=== PATIENT | male | born 1970 | race Caucasian/White ===

== ENCOUNTER 2023-04-23 16:10 | Emergency (ER) | payer OTHER, MEDICAID, SELFPAY ==
[2023-04-23] VITALS (80 sets, daily range): BP systolic 104–185; BP diastolic 55–101; PULSE 86–125; RESP 1–42; TEMP 36.8; O2SAT 87–98
--- NOTE | 2023-04-23 16:29 | DI.RAD.S_ITS ---
PROCEDURE: XR CHEST 1V INDICATIONS: chest pain TECHNIQUE: One view of the chest was acquired. COMPARISON: None. FINDINGS: Surgical changes and devices: None. Lungs and pleura: On this semiupright study, no large pneumothorax can be seen. There is mild blunting of the left costophrenic angle. Mild generalized interstitial prominence can be seen. Low lung volumes are noted. This causes a crowded appearance to the lung markings and limits evaluation. Mediastinum: Mediastinal contours appear normal. Heart size is at the upper limits of normal. Bones and chest wall: No suspicious bony lesions. Overlying soft tissues appear unremarkable. IMPRESSION: Small left-sided pleural effusion. Mild generalized interstitial prominence. Please consider artifact versus mild pulmonary edema. Dictated by: Enrique Mace M.D. on 04/23/2023 at 16:37 Approved by: Enrique Mace M.D. on 04/23/2023 at 16:37
--- NOTE | 2023-04-23 16:49 | ED_ITS ---
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 Negative (Negative) Urine Bilirubin Negative (NEGATIVE) Urine Urobilinogen 0.2 (0.2) E.U./dL Ur Leukocyte Esterase Negative (NEGATIVE) Urine RBC 0-1/hpf (0-5/HPF) Urine WBC None seen (0-5/HPF) Ur Squamous Epith Cells 0-1 /hpf (0-5/HPF) Urine Bacteria None seen (None) Urine Mucus 1+ H (Negative) Salicylates < 1.0 (<20) mg/dL U Opiates 300ng/mL cut (Negative) Ur Oxycodone Screen (Negative) Urine Methadone Screen (Negative) Acetaminophen < 10 (10-30) ug/mL Ur Barbiturates Screen (Negative) U Tricyclic Antidepress (Negative) Ur Phencyclidine Scrn (Negative) Ur Amphetamines Screen (Negative) U Methamphetamines Scrn (Negative) Ur MDMA Scrn (Ecstasy) (Negative) U Benzodiazepines Scrn (Negative) Urine Cocaine Screen (Negative) U Marijuana (THC) Screen (Negative) Ethyl Alcohol 274 H ( - 10) mg/dL SARS-CoV-2 (PCR) (Negative) 04/23/23 04/23/23 Range/Units 16:52 22:03 WBC (4.5-11.0) X10^3/uL RBC (4.5-5.9) X10^6/uL Hgb (13.5-17.5) g/dL Hct (41-53) % MCV (80-100) fL MCH (26-34) PG MCHC (30-36) % RDW (11.6-14.8) % Plt Count (150-400) X10^3/uL Neut % (Auto) (50-75) % Lymph % (Auto) (25-40) % [place] % (Auto) (3-14) % Eos % (Auto) (2-4) % Baso % (Auto) (0-2) % Neut # (Auto) (6890-8115) /uL Lymph # (Auto) (0258-4720) /uL [place] # (Auto) (0-900) /uL Eos # (Auto) (0-450) /uL Baso # (Auto) (0-100) /uL PT (10.1-12.7) SECONDS INR (0.9-1.3) APTT (26-36) SECONDS Sodium (137-145) mmol/L Potassium (3.4-5.1) mmol/L Chloride (98-107) mmol/L Carbon Dioxide (22-32) mmol/L BUN (9-20) mg/dL Creatinine (0.66-1.25) mg/dL Estimated GFR (>60) mL/min BUN/Creatinine Ratio (6-22) Glucose (70-100) mg/dL Calcium (8.4-10.2) mg/dL Magnesium (1.6-2.3) mg/dL Total Bilirubin (0.2-1.3) mg/dL AST (17-59) IU/L ALT (<50) IU/L Alkaline Phosphatase (38-126) U/L Total Creatine Kinase (55-170) U/L Troponin I (0.01-0.034) ng/mL NT-Pro-B Natriuret Pep (<125) pg/mL Total Protein (6.3-8.2) g/dL Albumin (3.5-5.0) g/dL Globulin (1.7-4.1) g/dL Albumin/Globulin Ratio (1.0-2.8) Lipase (23-300) U/L TSH (0.47-4.68) uIU/mL Free T4 (0.78-2.19) ng/dL Urine Color Urine Appearance Urine pH (4.5-8.0) Ur Specific [place] (1.000-1.035) Urine Protein (Negative) Urine Glucose (UA) (Negative) g/dL Urine Ketones (NEGATIVE) Urine Occult Blood (Negative) Urine Nitrate (Negative) Urine Bilirubin (NEGATIVE) Urine Urobilinogen (0.2) E.U./dL Ur Leukocyte Esterase (NEGATIVE) Urine RBC (0-5/HPF) Urine WBC (0-5/HPF) Ur Squamous Epith Cells (0-5/HPF) Urine Bacteria (None) Urine Mucus (Negative) Salicylates (<20) mg/dL U Opiates 300ng/mL cut Negative (Negative) Ur Oxycodone Screen Negative (Negative) Urine Methadone Screen Negative (Negative) Acetaminophen (10-30) ug/mL Ur Barbiturates Screen Negative (Negative) U Tricyclic Antidepress Negative (Negative) Ur Phencyclidine Scrn Negative (Negative) Ur Amphetamines Screen Negative (Negative) U Methamphetamines Scrn Negative (Negative) Ur MDMA Scrn (Ecstasy) Negative (Negative) U Benzodiazepines Scrn Positive H (Negative) Urine Cocaine Screen Negative (Negative) U Marijuana (THC) Screen Negative (Negative) Ethyl Alcohol ( - 10) mg/dL SARS-CoV-2 (PCR) Negative (Negative) [facility] Narrative Medical decision making narrative: This is a 53-year-old male who presents with complaint of suicidal ideation, patient has recently had alcohol and cocaine in the last 24 hours he feels that he is withdrawing at this time. He is tachycardic, slightly hypertensive, afebrile 94% on room air. Patient was given fluids, phenobarbital and we will reassess. Patient had labs including chest x-ray, troponin, BNP, tox screen workup shows appropriate CBC, lymphocytes are slightly low, coags are negative, electrolytes are normal glucose 169 normal renal function total CK is 353 AST ALT are 90 and 73, total bilirubin is normal with normal lipase TSH and T4 are normal and nega tive BNP as well as negative troponin. UA shows some changes consistent with possible dehydration with ketones, no glucose, no signs of infection. UDS positive for benzos. Negative for salicylates, negative for Tylenol, ETOH is 274. Patient was given phenobarbital 260mg IV, patient is feeling improved. A little sleepy afterwards. Patient medically cleared. Dr pichardo: received turned over. Review the patient's history and physical exam. Patient has been stable overnight. He has been sleeping most of the night. Has received a couple doses of Ativan however his CIWA scores have all been less than 5. [facility] and also suicidal ideation. He is stable for transport. Transport has been arranged. Discharge Plan Departure Patient Disposition: [facility]fer [facility] Clinical Impression: Alcoholic intoxication, Cocaine use disorder, Suicidal ideation
[2023-04-23] MEDS: PHENobarbital 65 MG/ML VIAL 260 MG IV (16:55)
[2023-04-23] MEDS: SODIUM CHLORIDE 0.9% 1,000 ML 1000 ML IV (16:56)
[2023-04-23 17:20] LABS: UR Morphine/Opiate cutoff 300 Negative (Negative); Ur Creatinine Normal (Normal); Ur Specific Gravity Normal (Normal); Urine Amphetamines Negative (Negative); Urine Barbiturates Negative (Negative); Urine Benzodiazepines Positive (Negative); Urine Cocaine Negative (Negative); Urine MDMA Negative (Negative); Urine Methadone Negative (Negative); Urine Methamphetamines Negative (Negative); Urine Oxycodone Negative (Negative); Urine Phencyclidine Negative (Negative); Urine Tetrahydrocannabinol Negative (Negative); Urine Tricyclic Antidepressant Negative (Negative); Urine pH Normal (Normal)
[2023-04-23 17:24] LABS: Add Manual Diff / Slide Review NO; Basophils Absolute Auto 0 /uL (0-100); Basophils Percent Auto 0.6 % (0-2); Eosinophils Absolute Auto 0 /uL (0-450); Hematocrit 46.8 % (41-53); Hemoglobin 16.2 g/dL (13.5-17.5); Lymphocytes Absolute Auto 1100 /uL (1100-4500); Lymphocytes Percent Auto 20.4 % (25-40); Mean Corpuscular HGB Conc 34.6 % (30-36); Mean Corpuscular Hemoglobin 30.4 PG (26-34); Mean Corpuscular Volume 87.8 fL (80-100); Monocytes Absolute Auto 400 /uL (0-900); Neutrophils Absolute Auto 3700 /uL (1500-7000); Platelet Count 256 X10^3/uL (150-400); Red Blood Cell Count 5.33 X10^6/uL (4.5-5.9); Red Cell Distribution Width 14.6 % (11.6-14.8); White Blood Cell Count 5.2 X10^3/uL (4.5-11.0)
[2023-04-23 17:26] LABS: INR 0.9 (0.9-1.3); Prothrombin Time 10.4 SECONDS (10.1-12.7)
[2023-04-23 17:26] LABS: Appearance Urine UA CLEAR; Bilirubin Urine UA NEGATIVE (NEGATIVE); Color Urine UA YELLOW; Glucose Urine UA NEGATIVE (Negative); Ketones Urine UA 1+ (NEGATIVE); Leukocyte Esterase Urine UA NEGATIVE (NEGATIVE); Nitrite Urine UA NEGATIVE (Negative); Occult Blood Urine UA 1+ (Negative); Protein Urine UA 2+ (Negative); Specific Gravity Urine UA >=1.030 (1.000-1.035); Urobilinogen Urine UA 0.2 E.U./dL (0.2)
[2023-04-23 17:28] LABS: PTT Partial Thromboplastin Tim 30 SECONDS (26-36)
[2023-04-23 17:31] LABS: Bacteria Urine None Seen; RBC Urine 0-1/HPF (0-5/HPF); WBC Urine None Seen (0-5/HPF)
[2023-04-23 17:32] LABS: Mucus Urine 1+ (Negative); Squamous Epithelial Cell Urine 0-1 /HPF (0-5/HPF)
[2023-04-23 17:36] LABS: Acetaminophen < 10 ug/mL (10-30); Alanine Aminotransferase 73 IU/L (<50); Albumin 4.8 g/dL (3.5-5.0); Albumin Globulin Ratio 1.5 (1.0-2.8); Alkaline Phosphatase 94 U/L (38-126); Aspartate Aminotransferase 90 IU/L (17-59); BUN Creatinine Ratio 8.8 (6-22); Bilirubin Total 0.6 mg/dL (0.2-1.3); Blood Urea Nitrogen 11 mg/dL (9-20); Calcium 8.9 mg/dL (8.4-10.2); Carbon Dioxide 23 mmol/L (22-32); Chloride 99 mmol/L (98-107); Creatine Kinase 353 U/L (55-170); Estimated Glomerular Filt Rate > 60 mL/min (>60); Ethanol (ETOH) 274 mg/dL; Globulin 3.2 g/dL (1.7-4.1); Glucose 169 mg/dL (70-100); HEMOLYSIS 41 (0-50); Lipase 46 U/L (23-300); Magnesium 2.2 mg/dL (1.6-2.3); Salicylate < 1.0 mg/dL (<20); Sodium 140 mmol/L (137-145)
[2023-04-23 17:47] LABS: NT-proBNP (BNP-Adult 18+) < 20 pg/mL (<125); Troponin I < 0.012 ng/mL (0.01-0.034)
--- NOTE | 2023-04-23 17:48 | PC.NURSE ---
SHOP SUPERVISOR note: This SHOP SUPERVISOR assisted pt. into paper scrubs and removed belongings t-shirt, shorts,wallet and phone and shoes into a personal belongings bag and placed in locked pt. belongings cabinet. pt. care ongoing.
[2023-04-23] MEDS: MULTIVITAMIN 1 TABLET 1 TAB PO (17:51)
[2023-04-23] MEDS: FOLIC ACID 1 MG TABLET PO (17:52)
[2023-04-23] MEDS: THIAMINE 100 MG TABLET PO (17:52)
[2023-04-23 17:54] LABS: Free T4, Direct Thyroxine 1.12 ng/dL (0.78-2.19)
[2023-04-23 18:07] LABS: Thyroid Stimulating Hormone 2.08 uIU/mL (0.47-4.68)
[2023-04-23] MEDS: LORazepam 2 MG/ML INJ IV (22:14)
--- NOTE | 2023-04-23 22:21 | PC.NURSE ---
[facility] declined d/t benzos in UDS when none had been given at previous hospital and [facility] and concerns patient acquired on the street. Also stated it was d/t patient requiring a orthoptist for [facility], is a patient safety issue especially in setting of suicidal ideation. Assessed patient for CIWA, CIWA score 14, provider made aware, new orders placed. Patient states he hears demon voices in his head that are speaking in other languages he doesn't know but feel oppressive and when he is sober tells me to drink. Drinking makes these voices worse. Patient states he's not always suicidal but doesn't want to live like this. States he started drinking again recently d/t the voices.
[2023-04-23 22:33] LABS: COVID19 -Nasal RAPID Negative (Negative)
--- NOTE | 2023-04-23 22:49 | PC.NURSE ---
Patient appears to be resting comfortably
--- NOTE | 2023-04-23 22:55 | PC.NURSE ---
Received call from [facility], states can tentatively acceptance to [facility] as long as ciwa's are less than 15 with an arrival time at 10:00
[2023-04-24] VITALS (49 sets, daily range): BP systolic 131–170; BP diastolic 74–91; PULSE 85–112; RESP 12–25; TEMP 36.8; O2SAT 91–97
--- NOTE | 2023-04-24 00:37 | PC.NURSE ---
Patient able to wake up with verbal prompting but denies any symptoms while awake and quickly appears to fall back to sleep. Does not appear to be in distress at this time.
--- NOTE | 2023-04-24 01:34 | PC.NURSE ---
Pt awaken to ask questions. No verbal response but shook head yes and no to questions. Denied any nausea or headache at this time. no tremors felt and pt skin, dry to touch.
[2023-04-24] MEDS: LORazepam 2 MG/ML INJ 1 MG IV (04:13)
== END 2023-04-24 08:55 ==
PROVIDERS: Emergency Medicine; Emergency Provider Emergency Medicine
DX: R45.851 Suicidal ideations (principal); F10.129 Alcohol abuse with intoxication, unspecified; Y90.8 Blood alcohol level of 240 mg/100 ml or more; R07.9 Chest pain, unspecified; R00.0 Tachycardia, unspecified; I10 Essential (primary) hypertension; Z20.822 Contact with and (suspected) exposure to COVID-19
CPT/HCPCS: 36415; 71045; 80053; 80305; 80320; 80329; 81001; 82550; 83690; 83735; 83880; 84439; 84443; 84484; 85025; 85610; 85730; 87635; 93005; 93010; 96361; 96374; 96375; 96376; 99284; 99285; C9803; G0480; J2060; J2560